=== PATIENT | female | born 1985 | race American Indian/Alaskan Native ===

== ENCOUNTER 2017-04-18 07:27 | Emergency (ER) | payer MEDICARE ==
[2017-04-18 08:27] LABS: Basophils % (Auto) 0.4 % (0.0-1.8); Eosinophils % (Auto) 2.9 % (0.0-4.3); Hemoglobin 11.6 gm/dl (10.1-14.3); Mean Corpuscular HGB Conc 33 % (30-34); Mean Corpuscular Hemoglobin 28 pg (28-32); Mean Corpuscular Volume 85 fl (79-97); Platelet Count 171 K/mm3 (140-440); Red Blood Count 4.14 M/mm3 (3.65-5.03); Red Cell Distribution Width 15.3 % (13.2-15.2); White Blood Count 6.4 K/mm3 (4.5-11.0)
--- NOTE | 2017-04-18 10:04 | Ultrasound Report ---
ULTRASOUND OB LESS THAN 14 WEEKS FETUS ULTRASOUND OB TRANSVAGINAL HISTORY: Vaginal bleeding during . COMPARISON: None. TECHNIQUE: Transabdominal and transvaginal ultrasound with color doppler interrogation. FINDINGS: Uterus: The uterus is anteverted and measures 15 x 9 x 9 cm. An intrauterine is identified with heart rate measuring 154 beats per minute. The placenta is forming in the fundal region. No subplacental collection. Estimated gestational age on ultrasound is 13 weeks, 2 days. Estimated due date of 10/22/17. There is trace fluid in the cervical canal. Right ovary: Obscured. Left ovary: Obscured. No pelvic fluid or mass is identified. Normal color doppler interrogation. IMPRESSION: Viable, single intrauterine as described. No acute abnormality is detected.
--- NOTE | 2017-04-18 11:42 | Emergency Department Report ---
HPI - General Chief Complaint: Vaginal Bleeding Time Seen by Provider: 04/18/17 11:25 - HPI HPI: This is a 32-year-old -Swiss female presents to the emergency department with complaint of some vaginal bleeding that started this morning and the patient is at about 12 weeks. With this she is . She follows with Dr. Carrie Xavier. She says that she takes vitamins. She denies any abdominal or pelvic pain or cramping but says that she has had some intermittent low back pain. She also has a past medical history of high blood pressure and high cholesterol. No recent travel or sick contacts at home. She has not taken anything for symptoms prior to presentation. ED Past Medical Hx - Past Medical History Previous Medical History?: Yes Hx Hypertension: Yes Hx Psychiatric Treatment: Yes (Depression) Additional medical history: high cholesterol, Obesity - Surgical History Past Surgical History?: No - Social History Smoking Status: Current Every Day Smoker Substance Use Type: Alcohol, Prescribed, Other - Medications Home Medications: Home Medications Medication Instructions Recorded Confirmed Last Taken Type Amoxicillin [Trimox CAP] 500 mg PO Q8H #30 capsule 10/05/13 Unknown Rx HYDROcodone/APAP 10-325 [[place] 1 each PO Q6HR PRN #16 tablet 10/05/13 Unknown Rx 10-325 mg TAB] ED Review of Systems ROS: Stated complaint: VAGINAL BLEEDING Other details as noted in HPI Comment: All other systems reviewed and negative Constitutional: denies: chills, fever Eyes: denies: eye pain, eye discharge, vision change ENT: denies: ear pain, throat pain Respiratory: denies: cough, shortness of breath, wheezing Cardiovascular: denies: chest pain, palpitations Gastrointestinal: denies: abdominal pain, nausea, diarrhea Genitourinary: other (vaginal bleeding). denies: dysuria, discharge Musculoskeletal: back pain. denies: arthralgia Skin: denies: rash, lesions Neurological: denies: headache, weakness, paresthesias Physical Exam - Physical Exam Vital Signs: Vital Signs 04/18/17 04/18/17 07:44 11:18 Temperature 97.8 F Pulse Rate 74 Respiratory 18 Rate Blood Pressure 141/76 O2 Sat by Pulse 97 99 Oximetry Physical Exam: GENERAL: The patient is well-developed well-nourished. HENT: Normocephalic. Atraumatic. Patient has moist mucous membranes. EYES: Extraocular motions are intact. Pupils equal reactive to light bilaterally. NECK: Supple. Trachea is midline. CHEST/LUNGS: Clear to auscultation. There is no respiratory distress noted. HEART/CARDIOVASCULAR: Regular. There is no tachycardia. There is no murmur. ABDOMEN: Abdomen is soft, nontender. Patient has normal bowel sounds. There is no abdominal distention. Morbidly obese habitus. SKIN: Skin is warm and dry. NEURO: The patient is awake, alert, and oriented. The patient is cooperative. The patient has no focal neurologic deficits. The patient has normal speech and gait. MUSCULOSKELETAL: There is no tenderness or deformity. There is no evidence of acute injury. ED Course Vital Signs 04/18/17 04/18/17 07:44 11:18 Temperature 97.8 F Pulse Rate 74 Respiratory 18 Rate Blood Pressure 141/76 O2 Sat by Pulse 97 99 Oximetry ED Medical Decision Making - Lab Data Result diagrams: 04/18/17 07:55 04/18/17 07:55 - Radiology Data Radiology results: report reviewed ULTRASOUND OB LESS THAN 14 WEEKS FETUS ULTRASOUND OB TRANSVAGINAL HISTORY: Vaginal bleeding during . COMPARISON: None. TECHNIQUE: Transabdominal and transvaginal ultrasound with color doppler interrogation. FINDINGS: Uterus: The uterus is anteverted and measures 15 x 9 x 9 cm. An intrauterine is identified with heart rate measuring 154 beats per minute. The placenta is forming in the fundal region. No subplacental collection. Estimated gestational age on ultrasound is 13 weeks, 2 days. Estimated due date of 10/22/17. There is trace fluid in the cervical canal. Right ovary: Obscured. Left ovary: Obscured. No pelvic fluid or mass is identified. Normal color doppler interrogation. IMPRESSION: Viable, single intrauterine as described. No acute abnormality is detected. Transcribed By: TTR Dictated By: NASRA VAZQUEZ JR, MD Electronically Authenticated By: NASRA VAZQUEZ JR, MD Signed Date/Time: 04/18/17 8086 - Medical Decision Making Patient presents with some vaginal bleeding that started this morning while . Ultrasound shows a live intrauterine . Labs are otherwise unremarkable. Discussed with the patient the ultrasound results showing the live intrauterine , as well as the diagnosis of threatened miscarriage. She has been encouraged to follow up with her SHEEP SORTER in the next few days and return to the ER with any worsening of symptoms or any acute distress. Vital signs stable. - Differential Diagnosis , threatened miscarriage, fibroids Critical Care Time: No Critical care attestation.: If time is entered above; I have spent that time in minutes in the direct care of this critically ill patient, excluding procedure time. ED Disposition Clinical Impression: Threatened miscarriage Qualifiers: Weeks of gestation: 13 weeks Qualified Code(s): Z3A.13 - 13 weeks gestation of Disposition: DC-01 TO HOME OR SELFCARE Is pt being admited?: No Condition: Stable Instructions: Threatened Miscarriage (ED), (ED) Additional Instructions: Please follow-up with your SHEEP SORTER in the next few days. Return to the emergency Department with any worsening of her symptoms, worsening of the vaginal bleeding, sharp abdominal or pelvic pains, or any acute distress. Continue with your vitamins. Referrals: DORI CARCAMO DO [Primary Care Provider] - 3-5 Days CARRIE XAVIER MD [Staff Physician] - 3-5 Days Time of Disposition: 13:07
[2017-04-18 12:24] LABS: Alanine Aminotransferase 19 units/L (7-56); Albumin 3.4 g/dL (3.9-5); Albumin/Globulin Ratio 1.3 %; Alkaline Phosphatase 62 units/L (35-129); Anion Gap 19 mmol/L; BUN/Creatinine Ratio 12; Blood Urea Nitrogen 6 mg/dL (7-17); Carbon Dioxide 22 mmol/L (22-30); Chloride 103.9 mmol/L (98-107); Glucose 87 mg/dL (65-100); Potassium 3.7 mmol/L (3.6-5.0); Sodium 141 mmol/L (137-145)
[2017-04-18 12:40] LABS: Bacteria,Urine 1+ /HPF (Negative); Bilirubin,Urine NEG (Negative); Blood,Urine LG (Negative); Ketones,Urine NEG (Negative); Leukocyte Esterase,Urine TR (Negative); Mucus,Urine FEW /HPF; Nitrite,Urine NEG (Negative); Protein,Urine <15 mg/dL mg/dL (Negative); Urobilinogen,Urine < 2.0 mg/dL (<2.0)
[2017-04-18 13:27] VITALS: BP 116/56
== END 2017-04-18 13:22 | disposition home or self-care (01) ==
LOC: ED 07:27
DX: O20.0 Threatened abortion (principal); O16.1 Unspecified maternal hypertension, first trimester; O99.331 Smoking (tobacco) complicating pregnancy, first trimester; F32.9 Major depressive disorder, single episode, unspecified; E66.9 Obesity, unspecified; E78.00 Pure hypercholesterolemia, unspecified; Z3A.13 13 weeks gestation of pregnancy
CPT/HCPCS: 36415; 76801; 76817; 80053; 81001; 84702; 85025; 86850; 86900; 86901

== ENCOUNTER 2017-08-24 09:47 | Outpatient (CLI) | payer MEDICARE ==
[2017-08-24 10:41] LABS: Bacteria,Urine 2+ /HPF (Negative); Bilirubin,Urine NEG (Negative); Blood,Urine NEG (Negative); Color,Urine Yellow (Yellow); Mucus,Urine FEW /HPF; Protein,Urine <15 mg/dL mg/dL (Negative); Urobilinogen,Urine < 2.0 mg/dL (<2.0)
[2017-08-24] MEDS ORDERED: PROVENTIL IH NR (11:00)
[2017-08-24 11:03] LABS: Hematocrit 32.8 % (30.3-42.9); Hemoglobin 11.2 gm/dl (10.1-14.3); Mean Corpuscular HGB Conc 34 % (30-34); Mean Corpuscular Hemoglobin 29 pg (28-32); Mean Corpuscular Volume 85 fl (79-97); Platelet Count 186 K/mm3 (140-440); Red Blood Count 3.87 M/mm3 (3.65-5.03); Red Cell Distribution Width 16.5 % (13.2-15.2)
[2017-08-24 11:11] LABS: Alanine Aminotransferase 14 units/L (7-56); Uric Acid 4.4 mg/dL (3.5-7.6)
[2017-08-24 12:56] VITALS: BP 151/86
--- NOTE | 2017-08-24 13:52 | Ultrasound Report ---
ULTRASOUND BIOPHYSICAL PROFILE: History: well being Technique: Transabdominal ultrasound with Doppler interrogation. 2 - breathing movements 2 - movements 2 - posture and tone 2 - Qualitative amniotic fluid volume 8 - TOTAL SCORE OF POSSIBLE 8 Heart Rate (bpm) 145
== END 2017-08-24 14:22 | disposition home or self-care (01) ==
LOC: TRG 09:47
PROVIDERS: ATTEND Obstetrics & Gynecology
DX: O47.03 False labor before 37 completed weeks of gestation, third trimester (principal); Z3A.30 30 weeks gestation of pregnancy
CPT/HCPCS: 36415; 59025; 76819; 81001; 82565; 83615; 84450; 84460; 84550; 85027; 94640

== ENCOUNTER 2017-09-14 10:25 | Inpatient (IN) | payer MEDICARE ==
[2017-09-14] MEDS ORDERED: BICITRA PO SCH (11:18)
[2017-09-14] MEDS ORDERED: REGLAN IV SCH (11:18)
[2017-09-14] MEDS ORDERED: PEPCID IV SCH (11:18)
[2017-09-14 12:00] LABS: Basophils % (Auto) 0.4 % (0.0-1.8); Eosinophils # (Auto) 0.1 K/mm3 (0.0-0.4); Eosinophils % (Auto) 1.7 % (0.0-4.3); Hematocrit 34.5 % (30.3-42.9); Hemoglobin 11.6 gm/dl (10.1-14.3); Lymphocytes # (Auto) 1.9 K/mm3 (1.2-5.4); Lymphocytes % (Auto) 26.8 % (13.4-35.0); Mean Corpuscular HGB Conc 34 % (30-34); Mean Corpuscular Hemoglobin 29 pg (28-32); Mean Corpuscular Volume 85 fl (79-97); Monocytes # (Auto) 0.6 K/mm3 (0.0-0.8); Monocytes % (Auto) 7.7 % (0.0-7.3); Platelet Count 177 K/mm3 (140-440); Red Blood Count 4.04 M/mm3 (3.65-5.03); Red Cell Distribution Width 16.6 % (13.2-15.2)
[2017-09-14] MEDS ORDERED: ANCEF/STERILE WATER 2 GM/20 ML 2 GM/20 ML SYRINGE IV NR (12:00)
[2017-09-14] MEDS ORDERED: LACTATED RINGERS 1,000 ML IV SCH (12:00)
--- NOTE | 2017-09-14 12:59 | History and Physical Report ---
History of Present Illness Date of examination: 09/14/17 Date of admission: 09/14/17 10:27 Chief complaint: This is a 32 yo at 33+ 5 weeks came in via MFM and recommendations to deliver secondary to severe pree and VANCE 3cm. Her hx includes morbid obesity with BMI 63. Hx of chronic HTN on labetolol and methyldopa. Tobacco abuse and will not quit per patient and declines supplenments. Hep B. Hx of fibroid uterus. Hx of asthma , h/o depression. FOB HIV + on PREP. Hx of first trimester bleeding. Hx of trichomoniasis treated in 04/2017 GBS positive. scheduled for csec tomorrow at 34 weeks however dx today with oligohydramnios and will proceed with primary csec Past History Past Medical History: asthma, hypertension, kidney stones, other (morbid obestity, depression, hypercholesterolemia ) Past Surgical History: cholecystectomy FABRICATION INSPECTOR History: fibroids, hepatitis B, trichomonas Family/Genetic History: diabetes, heart disease, other (bipolar,anxiety, ) Social history: smoking, alcohol abuse. denies: prescription drug abuse - Obstetrical History Expected Date of Delivery: 10/27/17 Actual Gestation: 33 Week(s) 6 Day(s) : 1 Para: 0 Hx # Term Pregnancies: 0 Number of Pregnancies: 0 Spontaneous Abortions: 0 Induced : 0 Number of Living Children: 0 Medications and Allergies Allergies Allergy/AdvReac Type Severity Reaction Status Date / Time Latex, Natural Rubber Allergy Severe Itching Verified 09/14/17 10:28 Home Medications Medication Instructions Recorded Confirmed Last Taken Type Labetalol [Normodyne] 200 mg PO BID 08/24/17 08/30/17 08/30/17 10:00 History 1 Methyldopa [Aldomet] 250 mg PO BID 08/24/17 08/30/17 08/30/17 10:00 History 1 Vit Calc,Iron,Folic 1 tab PO DAILY 08/24/17 08/30/17 1 Day Ago History [ Vitamins] ~08/29/17 1 Active Meds: Active Medications Citric Acid/Sodium Citrate (Bicitra) 30 ml PO ONCE FRANK Stop: 09/14/17 23:19 Famotidine (Pepcid) 20 mg IV ONCE FRANK Stop: 09/14/17 23:19 Cefazolin Sodium (Ancef/Sterile Water 2 Gm/20 Ml) 2 gm in 20 mls @ 80 mls/hr IV PREOP NR; Protocol Stop: 09/14/17 23:01 Lactated Ringer's (Lactated Ringers) 1,000 mls @ 2,250 mls/hr IV PREOP FRANK Stop: 09/15/17 12:27 Last Admin: 09/14/17 12:11 Dose: 2,250 mls/hr Oxytocin/Sodium Chloride (Pitocin/Ns 20 Unit/1000ml Drip) 20 units in 1,000 mls @ 0 mls/hr IV TITR FRANK Metoclopramide HCl (Reglan) 10 mg IV ONCE FRANK Review of Systems All systems: negative - Vital Signs Vital signs: Vital Signs Pulse Pulse Ox 81 98 09/14/17 11:16 09/14/17 11:16 Temp Pulse Resp BP Pulse Ox 97.8 F 88 16 115/59 98 09/14/17 12:15 09/14/17 12:15 09/14/17 12:15 09/14/17 12:15 09/14/17 12:06 - Physical Exam Breasts: Positive: normal Cardiovascular: Regular rate, Normal S1 Lungs: Positive: Clear to auscultation, Normal air movement Abdomen: Positive: normal appearance, soft, normal bowel sounds. Negative: distention, tenderness, guarding Genitourinary (Female): Positive: normal external genitalia, normal perenium Vulva: both: normal Uterus: Positive: normal size Anus/Rectum: Positive: normal perianal skin Extremities: Positive: normal Deep Tendon Reflex Grade: Normal +2 Results Result Diagrams: 09/14/17 11:30 Abnormal lab results 09/14/17 Range/Units 11:30 RDW 16.6 H (13.2-15.2) % Foster % (Auto) 7.7 H (0.0-7.3) % All other labs normal. Assessment and Plan A/P IUP 33+6 weeks , chronic HTN, Severe preeclampsia Chronic smoker, asthma dicussed with MFM and recommended delivery today IVF, labs consents signed reviewed r/b/a of bleeding infection, damage to pelvic and non pelvic organs, risk of blood clots, risk of chronic pain, hysterectomy and patient agrees and understands risk of and all that follows with premature
[2017-09-14] MEDS ORDERED: ACD-A 500 ML IV ONE (14:20)
[2017-09-14] MEDS ORDERED: NACL 0.9% 1000 ML 1,000 ML ONE (14:45)
[2017-09-14] MEDS ORDERED: MORPHINE ONE (15:24)
[2017-09-14] MEDS ORDERED: XYLOCAINE MPF 2% ONE ×2 (15:25)
[2017-09-14] MEDS ORDERED: WATER FOR IRRIG STERILE IR ONE (15:59)
[2017-09-14] MEDS ORDERED: NACL 0.9% IR ONE (15:59)
[2017-09-14] MEDS ORDERED: NORCO 5/325 PO PRN (16:29)
[2017-09-14] MEDS ORDERED: ZOFRAN IV PRN ×2 (16:29→16:39)
[2017-09-14] MEDS ORDERED: SENOKOT PO PRN (16:29)
[2017-09-14] MEDS ORDERED: LANSINOH TP PRN (16:29)
[2017-09-14] MEDS ORDERED: ANUCORT-HC PR PRN (16:29)
[2017-09-14] MEDS ORDERED: NARCAN 0.4 MG/1 ML IV PRN ×2 (16:29→16:39)
[2017-09-14] MEDS ORDERED: PHENERGAN PR PRN ×2 (16:29→16:39)
[2017-09-14] MEDS ORDERED: TUCKS PAD TP PRN (16:29)
[2017-09-14] MEDS ORDERED: MILK OF MAGNESIA PO PRN (16:29)
[2017-09-14] MEDS ORDERED: PHENERGAN PO PRN (16:39)
[2017-09-14] MEDS ORDERED: BENADRYL IV PRN (16:39)
--- NOTE | 2017-09-14 16:39 | Anesthesia Day of Surgery ---
Anesthesia Day of Surgery - Day of Surgery Patient Examined: Yes Patient H&P Reviewed: Yes Patient is NPO: Yes
--- NOTE | 2017-09-14 16:39 | Anesthesia Consultation ---
Anesthesia Consult and Med Hx Date of service: 09/14/17 - Airway Anesthetic Teeth Evaluation: Poor ROM Head & Neck: Adequate Mental/Hyoid Distance: Adequate Mallampati Class: Class III Intubation Access Assessment: Possibly Difficult - Pre-Operative Health Status ASA Pre-Surgery Classification: ASA3 Proposed Anesthetic Plan: Epidural, Spinal - Pulmonary Hx Smoking: Yes Hx Asthma: Yes COPD: No Hx Pneumonia: No - Cardiovascular System Hx Hypertension: Yes - Central Nervous System Hx Seizures: No Hx Psychiatric Problems: No - Endocrine Hx Renal Disease: No Hx End Stage Renal Disease: No Hx Hypothyroidism: No Hx Hyperthyroidism: No - Hematic Hx Anemia: No Hx Sickle Cell Disease: No - Other Systems Hx Alcohol Use: Yes Hx Obesity: Yes (BMI 82.2)
[2017-09-14] MEDS ORDERED: TORADOL IV PRN (16:40)
[2017-09-14] MEDS ORDERED: MAGNESIUM SULFATE 4GM/100ML 4 GM/100 ML BAG IV ONE (16:43)
--- NOTE | 2017-09-14 16:43 | Operative Report ---
Operative Report Operative Report: DATE: 09/14/17 PREOP: 1. MORBIDLY OBESED 2. CHRONIC HTN 3. SEVERE PREECLAMPSIA 4. OLIGOHYDRAMNIOS 5. IUP 33+6 WEEKS POSTOP: 1-5 NYDIA SURGEON; MIKE GUEVARA IVF:1600 CC EBL: 700 CC OPERATION: Primary low segment transverse section. DESCRIPTION OF OPERATION: The patient was brought to the operating room and placed on the table in supine position, and after adequate epidural anesthesia, she was prepped and draped in the usual sterile fashion. A Pfannenstiel incision was made with a clean scalpel. The incision was taken down the fascial layer with a clean second knife. The fascial layer was incised transversely to the full length of the primary incision. The underlying muscle bellies were dissected with blunt and sharp dissection. The muscle belly was split in the midline. The peritoneum was then grasped between 2 Monie clamps and elevated. After ensuring no adherent bowel or bladder, the peritoneum was nicked between clamps. The abdominal cavity was thus entered. The bladder flap was formed with blunt and sharp dissection and then the uterus was scored in the lower uterine segment in transverse fashion, The was found to be cephalic. Mouth and nose were suctioned prior to delivery of rest of the body. The was delivered. It was a living Male with Apgars of 9 and 9. There wasclear fluid. . The cord was doubly clamped, cut between the clamps, and the was handed away to the assistant toddler teacher. Cord bloods were taken. The placenta was then manually . The edges of the uterine incision were then reapproximated with continuous running suture of #1 vicryl. The second imbricating layer was also sewn using #2 vicryl. Good hemostasis was noted. The abdomen was cleaned of blood and clots. Tubes and ovaries were inspected and found to be normal. Then, the abdomen was closed in layers after correct sponge, needle, and instrument count. The peritoneum was closed with continuous running suture of 0 vicrylt. The muscle bellies closed with interrupted sutures of 0 chromic catgut. The fascia was closed with 2 continuous running sutures of 0 PDS beginning at the opposite side towards myself. The subcutaneous tissue was closed with continuous running suture of 3- 0 plain catgut, and the skin was closed with surgical espinoza. wound vac present in the case and dressed insion. Sponge, needle, and instrument counts were correct at the end of the procedure.
[2017-09-14] MEDS ORDERED: SODIUM CHLORIDE FLUSH SYRINGE 10 ML IV SCH ×2 (17:00)
[2017-09-14] MEDS: PITOCin/NS 20 UNIT/1000ML DRIP 20 UNITS/1,000 ML BAG IV SCH (17:20)
[2017-09-14] MEDS: DILAUDID IV PRN ×3 (17:23→18:03)
[2017-09-14] MEDS: MAGNESIUM SULFATE 40GM/1000ML 40 GM/1,000 ML BAG IV SCH (18:05)
[2017-09-14] MEDS: TORADOL IV PRN (19:46)
[2017-09-14] MEDS: NORMODYNE PO SCH (21:28)
[2017-09-14] MEDS: ALDOMET PO SCH (21:28)
[2017-09-15] MEDS: TORADOL IV PRN ×2 (02:10→08:45)
[2017-09-15] MEDS: PITOCin/NS 20 UNIT/1000ML DRIP 20 UNITS/1,000 ML BAG IV SCH (02:26)
[2017-09-15 04:39] LABS: Hematocrit 33.9 % (30.3-42.9)
[2017-09-15] MEDS ORDERED: BOOSTRIX IM ONE (06:00)
--- NOTE | 2017-09-15 08:15 | Progress Note ---
Assessment and Plan A/P POD#1 s/p primary csec for severe pree and oligo VSS chronic HTN on labetolol and aldomet BP 140-150s/60s Mag for 24 hrs off today routine PO orders Subjective - Subjective Date of service: 09/15/17 Principal diagnosis: s/p primary csec severe mag Patient reports: appetite normal, voiding normally, pain well controlled [place]: doing well, in NICU Objective - Vital Signs Latest vital signs: Vital Signs Temp Pulse Resp BP BP BP Pulse Ox 09/15/17 04:20 98.4 F 80 18 135/68 09/15/17 02:10 73 148/68 09/15/17 00:00 98.4 F 68 18 140/72 09/14/17 22:00 154/73 09/14/17 21:28 73 163/73 09/14/17 20:25 98.6 F 73 20 163/87 98 09/14/17 18:40 98.7 F 72 20 105/85 98 09/14/17 18:00 98.2 F 82 18 154/93 98 09/14/17 17:50 75 12 154/77 99 09/14/17 17:23 83 14 149/82 98 09/14/17 17:15 77 18 149/82 98 09/14/17 17:06 81 12 141/81 100 09/14/17 17:01 97.7 F 67 16 131/68 99 09/14/17 16:45 77 13 155/96 98 09/14/17 16:40 76 20 140/85 97 09/14/17 16:36 72 15 144/75 99 09/14/17 16:29 97.0 F L 75 11 L 147/89 98 09/14/17 12:15 97.8 F 88 16 115/59 09/14/17 12:06 80 98 09/14/17 12:01 82 99 09/14/17 11:56 78 98 09/14/17 11:51 83 97 09/14/17 11:46 72 98 09/14/17 11:41 85 99 09/14/17 11:36 79 98 09/14/17 11:31 85 100 09/14/17 11:26 86 99 09/14/17 11:21 80 98 09/14/17 11:16 81 98 Intake and Output 09/14/17 09/15/17 09/15/17 23:59 07:59 15:59 Intake Total 1999 480 Output Total 600 1900 Balance 1400 -1420 Intake: IV 2000 Oral 480 Output: Urine 600 1900 Indwelling Catheter 1900 Other: Total, Intake Amount 240 Total, Output Amount 1000 Estimated Blood Loss 700 - Exam Breasts: Present: normal Cardiovascular: Present: Regular rate, Normal S1 Lungs: Present: Clear to auscultation, Normal air movement Abdomen: Present: normal appearance, soft, normal bowel sounds. Absent: distention, tenderness, guarding Vulva: both: normal Uterus: Present: normal, firm, fundal height below umbilicus. Absent: bogginess , tenderness Extremities: Present: normal Deep Tendon Reflex Grade: Normal +2 Incision: Present: normal, dry, dressed - Labs Labs: Abnormal lab results 09/14/17 Range/Units 11:30 RDW 16.6 H (13.2-15.2) % [place] % (Auto) 7.7 H (0.0-7.3) %
[2017-09-15] MEDS: NORMODYNE PO SCH ×2 (11:45→21:41)
[2017-09-15] MEDS: FEOSOL PO SCH (11:45)
[2017-09-15] MEDS: PRENATAL VITAMIN PO SCH (11:45)
[2017-09-15] MEDS: ALDOMET PO SCH ×2 (11:45→21:41)
[2017-09-15] MEDS: MYLICON PO PRN ×2 (11:45→17:45)
[2017-09-15] MEDS: PERCOCET 5/325 PO PRN ×2 (13:40→20:45)
[2017-09-15] MEDS: MAGNESIUM SULFATE 40GM/1000ML 40 GM/1,000 ML BAG IV SCH (14:39)
[2017-09-15] MEDS ORDERED: M-M-R II VACCINE SUB-Q ONE (16:31)
[2017-09-16] MEDS: PERCOCET 5/325 PO PRN ×3 (06:13→17:53)
[2017-09-16] MEDS: PRENATAL VITAMIN PO SCH (10:20)
[2017-09-16] MEDS: FEOSOL PO SCH (10:20)
[2017-09-16] MEDS: ALDOMET PO SCH ×2 (10:21→22:53)
[2017-09-16] MEDS: NORMODYNE PO SCH (10:21)
--- NOTE | 2017-09-16 13:35 | Progress Note ---
Assessment and Plan Postoperative day 2 status post primary for this morbidly obese patient. She has drains in the incision and wound VAC. Due to the patient's large pannus the incision was unable to be adequately assessed however there appeared to be no obvious bleeding or obvious drainage. The patient is scheduled to see wound care on Monday and will remain in-house until at least that day. Continue routine postoperative care. Subjective - Subjective Date of service: 09/16/17 Principal diagnosis: s/p primary csec severe mag Interval history: Patient is requesting the to go outside to smoke. She otherwise has no complaints Patient reports: appetite normal, voiding normally, pain well controlled : in NICU Objective - Vital Signs Latest vital signs: Vital Signs Temp Pulse Resp BP BP Pulse Ox 09/16/17 11:48 20 09/16/17 10:21 64 137/54 09/16/17 08:14 98.4 F 91 H 20 137/64 97 09/16/17 06:13 18 09/16/17 00:00 98.6 F 69 18 127/76 09/15/17 21:41 87 153/85 09/15/17 20:45 18 09/15/17 18:06 98.9 F 87 20 153/85 98 Intake and Output 09/15/17 09/16/17 09/16/17 22:59 06:59 14:59 Intake Total 1040 240 Output Total 4900 500 Balance -3860 -260 Intake: Oral 560 240 Intake, Free Water 480 Output: Urine 4900 500 Indwelling Catheter 4100 Void 800 500 Other: Total, Intake Amount 200 240 Total, Output Amount 500 500 - Exam Breasts: Present: deferred Cardiovascular: Present: Regular rate, Normal S1, Normal S2 Lungs: Present: Clear to auscultation, Normal air movement Abdomen: Present: normal appearance, soft, normal bowel sounds Vulva: both: normal Uterus: Present: normal, firm, fundal height below umbilicus Extremities: Present: normal Deep Tendon Reflex Grade: Normal +2 Incision: Present: other (unable to assess)
[2017-09-16] MEDS: GUAIFENESIN DM SYRUP PO PRN (22:53)
[2017-09-16] MEDS: PROCARDIA XL PO SCH (22:53)
[2017-09-17] MEDS: GUAIFENESIN DM SYRUP PO PRN (08:13)
[2017-09-17] MEDS: PERCOCET 5/325 PO PRN (09:52)
[2017-09-17] MEDS: PROCARDIA XL PO SCH ×2 (09:53→21:46)
[2017-09-17] MEDS: FEOSOL PO SCH (09:53)
[2017-09-17] MEDS: ALDOMET PO SCH ×2 (09:53→21:45)
[2017-09-17] MEDS ORDERED: PERCOCET 5/325 PO PRN (15:16)
[2017-09-17] MEDS: PRENATAL VITAMIN PO SCH (15:25)
[2017-09-17] MEDS: MOTRIN PO PRN (21:45)
--- NOTE | 2017-09-18 08:34 | Progress Note ---
Assessment and Plan A: POD#4 s/p primary at 34 wks secondary to CHTN with superimposed preeclampsia, oligohydramnios s/p Mag Sulfate x 24 hrs Morbid Obesity BMI 82 Hepatitis B Tobacco Use P: Doing well postoperatively Wound care consult today Awaiting home vac and home health Discharge planning Subjective - Subjective Date of service: 09/18/17 Principal diagnosis: s/p primary csec severe mag Interval history: Pt asking to be discharged. No overnight events. Awaiting wound care consult today and home health for discharge. Case management aware. Patient reports: appetite normal, voiding normally, pain well controlled, flatus , ambulating normally, no bowel movement, no nauseated : doing well, in NICU Objective - Vital Signs Latest vital signs: Vital Signs Temp Pulse Resp BP BP BP Pulse Ox 09/18/17 04:15 98.7 F 80 18 131/67 09/18/17 00:00 98.6 F 71 18 132/68 09/17/17 21:31 98.2 F 100 H 143/80 09/17/17 17:25 98.6 F 112 H 18 146/88 97 09/17/17 15:24 20 09/17/17 09:53 84 159/95 09/17/17 09:52 16 09/17/17 09:37 98.2 F 104 H 18 159/95 92 Intake and Output 09/17/17 09/18/17 09/18/17 22:59 06:59 14:59 Intake Total 300 Output Total 25 Balance 275 Intake: Intake, Free Water 300 Output: Drainage 25 Abdomen 25 Other: Total, Output Amount 25 - Exam Breasts: Present: deferred Cardiovascular: Present: Regular rate Lungs: Present: Clear to auscultation Abdomen: Present: soft (obese ), normal bowel sounds Extremities: Present: edema Incision: Present: other (wound vac in place but lower edge has become detached , pad in place there )
[2017-09-18] MEDS: PRENATAL VITAMIN PO SCH (10:26)
[2017-09-18] MEDS: FEOSOL PO SCH (10:26)
[2017-09-18] MEDS: ALDOMET PO SCH (10:27)
[2017-09-18] MEDS: PROCARDIA XL PO SCH (10:28)
[2017-09-18] MEDS: MOTRIN PO PRN (10:32)
--- NOTE | 2017-09-18 13:49 | Discharge Summary ---
Providers - Providers Date of Admission: 09/14/17 10:27 Date of discharge: 09/18/17 Attending physician: MIKE GUEVARA MD 09/18/17 08:27 Consult to Wound/ET Nurse [CONS] Routine Reason For Exam: wound eval; discharge planning 09/18/17 08:28 Consult to Case Management [CONS] Routine Services Needed at Discharge: Wound Vac 09/18/17 09:40 Consult to Dietitian/Nutrition [CONS] Routine Physician Instructions: needing recommendations for wound healing Reason For Exam: pt. has a wound vac Reason for Consult: Diet education Primary care physician: MIKE GUEVARA MD Hospitalization Reason for admission: section, other (Oligohydrmanios ) Delivery: Procedure: section, primary low transverse Procedure details: Please see operative report. Incision: other (wound vac in place ) Other procedures: none complications: none Discharge diagnosis: delivery [place] baby: male Hospital course: Pt was admitted at 34 weeks for primary section secondary to need for delivery due to chronic hypertension with superimposed preeclampsia and oligohydramnios and inability to monitor heart tones due to maternal habitus. She underwent primary section which she tolerated well with placement of a wound vac at the end of the case. Her postoperative course was uncomplicated and she met discharge criteria on POD#4. She will be followed by home health and in the outpatient wound care office. She will follow up with Dr Xavier for a blood pressure check in 1 week. Condition at discharge: Stable Disposition: DC-01 TO HOME OR SELFCARE - Discharge Diagnoses (1) Hepatitis B affecting Status: Acute (2) Tobacco use affecting in third trimester, antepartum Status: Acute (3) Oligohydramnios in third trimester Status: Acute Qualifiers: Fetus number: single or unspecified fetus Qualified Code(s): O41.03X0 - Oligohydramnios, third trimester, not applicable or unspecified (4) S/P section Status: Acute (5) Asthma Status: Acute Qualifiers: Asthma severity: unspecified severity Asthma complication type: unspecified (6) Chronic hypertension with superimposed pre-eclampsia Status: Acute (7) Morbid obesity Status: Acute (8) Tobacco abuse Status: Acute Plan - Discharge Medications Prescriptions: Docusate Sodium [Colace] 100 mg PO BID PRN #30 capsule PRN Reason: Constipation Ferrous Sulfate 325 mg PO BID #30 tablet.dr Ibuprofen [Motrin] 600 mg PO Q8H PRN #30 tablet PRN Reason: Pain Labetalol [Normodyne TAB] 300 mg PO BID #60 tablet Methyldopa [Aldomet] 250 mg PO BID #60 tablet oxyCODONE /ACETAMINOPHEN [Percocet 5/325] 1 tab PO Q6HR PRN #30 tablet PRN Reason: Pain - Provider Discharge Summary Activity: routine, no sex for 6 weeks, no heavy lifting 4 weeks, no strenuous exercise Diet: routine Instructions: routine Additional instructions: [] Smoking cessation referral if applicable(refer to patient education folder for contact #) [] Refer to [facility]'s [facility] Booklet Call your doctor immediately for: * Fever > 100.5 * Heavy vaginal bleeding ( >1 pad per hour) * Severe persistent headache * Shortness of breath * Reddened, hot, painful area to leg or breast * Drainage or odor from incision. * Keep incision clean and dry at all times and follow doctor's instructions regarding bathing/showering - Follow up plan Follow up: CODY XAVIER MD [Staff Physician] - 7 Days Forms: [facility] Discharge Summary
[2017-09-18 17:12] VITALS: BP 130/78
== END 2017-09-18 16:55 | disposition home or self-care (01) | DRG 765 ==
LOC: TRG 10:25 → APU 10:27 → OB 18:41
PROVIDERS: ADMIT Obstetrics & Gynecology; ATTEND Obstetrics & Gynecology
PROC: 10D00Z1 Extraction of Products of Conception, Low, Open Approach (ICD-10-PCS; principal; 2017-09-14)
PROC: 3E0234Z Introduction of Serum, Toxoid and Vaccine into Muscle, Percutaneous Approach (ICD-10-PCS; 2017-09-15)
DX: O11.4 Pre-existing hypertension with pre-eclampsia, complicating childbirth (principal); Z68.45 Body mass index [BMI] 70 or greater, adult; O41.03X0 Oligohydramnios, third trimester, not applicable or unspecified; B19.10 Unspecified viral hepatitis B without hepatic coma; O98.42 Viral hepatitis complicating childbirth; O26.833 Pregnancy related renal disease, third trimester; O98.32 Other infections with a predominantly sexual mode of transmission complicating childbirth; E66.01 Morbid (severe) obesity due to excess calories; O99.214 Obesity complicating childbirth; O99.52 Diseases of the respiratory system complicating childbirth; E78.00 Pure hypercholesterolemia, unspecified; J45.909 Unspecified asthma, uncomplicated; O99.344 Other mental disorders complicating childbirth; O99.334 Smoking (tobacco) complicating childbirth; F17.210 Nicotine dependence, cigarettes, uncomplicated; N20.0 Calculus of kidney; F32.9 Major depressive disorder, single episode, unspecified; Z90.49 Acquired absence of other specified parts of digestive tract; Z83.3 Family history of diabetes mellitus; Z71.3 Dietary counseling and surveillance; Z71.6 Tobacco abuse counseling; Z3A.33 33 weeks gestation of pregnancy; Z37.0 Single live birth; Z23 Encounter for immunization; Z82.49 Family history of ischemic heart disease and other diseases of the circulatory system; O99.824 Streptococcus B carrier state complicating childbirth; A59.9 Trichomoniasis, unspecified
CPT/HCPCS: 36415; 85014; 85018; 85025; 86592; 86850; 86900; 86901; 88307; 99211; C9250; G0463; J0690; J1170; J1885; J2270; J2590; J2765; J3475; J7030; J7120

== ENCOUNTER 2017-09-21 12:36 | Outpatient (CLI) | payer MEDICARE ==
[2017-09-21] MEDS ORDERED: XYLOCAINE TOPICAL 4% TP ONE ×2 (13:48→15:00)
== END 2017-09-21 12:37 | disposition home or self-care (01) ==
LOC: WOUND 12:36
PROVIDERS: ATTEND Nurse Practitioner
DX: T81.31XA Disruption of external operation (surgical) wound, not elsewhere classified, initial encounter (principal); E66.01 Morbid (severe) obesity due to excess calories; Z68.44 Body mass index [BMI] 60.0-69.9, adult; Y83.8 Other surgical procedures as the cause of abnormal reaction of the patient, or of later complication, without mention of misadventure at the time of the procedure; Y92.89 Other specified places as the place of occurrence of the external cause
CPT/HCPCS: 11042; 87075; 87076; 87116; 87186; G0463; 97605; 99205

== ENCOUNTER 2017-09-28 09:04 | Outpatient (CLI) | payer MEDICARE ==
[2017-09-28] MEDS ORDERED: XYLOCAINE TOPICAL 4% TP ONE ×2 (09:34→09:35)
[2017-09-28] MEDS ORDERED: SILVER NITRATE TP ONE ×2 (10:05→10:22)
== END 2017-09-28 09:05 | disposition home or self-care (01) ==
LOC: WOUND 09:04
PROVIDERS: ATTEND Surgery
DX: T81.31XD Disruption of external operation (surgical) wound, not elsewhere classified, subsequent encounter (principal); E66.01 Morbid (severe) obesity due to excess calories; F17.200 Nicotine dependence, unspecified, uncomplicated; Z68.44 Body mass index [BMI] 60.0-69.9, adult; Y83.8 Other surgical procedures as the cause of abnormal reaction of the patient, or of later complication, without mention of misadventure at the time of the procedure

== ENCOUNTER 2017-10-05 09:10 | Outpatient (CLI) | payer MEDICARE ==
[2017-10-05] MEDS ORDERED: XYLOCAINE TOPICAL 4% TP ONE ×2 (10:56)
[2017-10-05] MEDS ORDERED: SILVER NITRATE TP ONE ×2 (11:04→11:21)
== END 2017-10-05 09:11 | disposition home or self-care (01) ==
LOC: WOUND 09:10
PROVIDERS: ATTEND Surgery
DX: T81.31XD Disruption of external operation (surgical) wound, not elsewhere classified, subsequent encounter (principal); E66.01 Morbid (severe) obesity due to excess calories; F17.200 Nicotine dependence, unspecified, uncomplicated; Z68.44 Body mass index [BMI] 60.0-69.9, adult; Y83.8 Other surgical procedures as the cause of abnormal reaction of the patient, or of later complication, without mention of misadventure at the time of the procedure
CPT/HCPCS: 17250

== ENCOUNTER 2017-10-19 11:26 | Outpatient (CLI) | payer MEDICARE | END 2017-10-19 11:27 | disposition home or self-care (01) | LOC: WOUND 11:26 | PROVIDERS: ATTEND Surgery | DX: T81.31XD Disruption of external operation (surgical) wound, not elsewhere classified, subsequent encounter (principal); E66.01 Morbid (severe) obesity due to excess calories; F17.200 Nicotine dependence, unspecified, uncomplicated; Z68.44 Body mass index [BMI] 60.0-69.9, adult; Y83.8 Other surgical procedures as the cause of abnormal reaction of the patient, or of later complication, without mention of misadventure at the time of the procedure | CPT/HCPCS: 99213; G0463 ==